=== PATIENT | female | born 1965 | race Hispanic/Latino ===

== ENCOUNTER 2024-04-02 14:52 | Emergency (ER) | payer OTHER ==
[~2024-04-02] VITALS: Ht 165.1 cm; Wt 118.4 kg
[2024-04-02 14:55] VITALS: PULSE 71; RESP 16; TEMP 97; O2SAT 97
[2024-04-02] MEDS ORDERED: NAPROXEN250 MG PO (15:21)
[2024-04-02] MEDS: KETOROLAC TROMETHAMINE 30 MG/ML VIAL IM STA (15:34)
== END 2024-04-02 15:39 | disposition home or self-care (01) ==
LOC: ER 14:55
DX: S86.312A Strain of muscle(s) and tendon(s) of peroneal muscle group at lower leg level, left leg, initial encounter (principal); I10 Essential (primary) hypertension; E11.9 Type 2 diabetes mellitus without complications; E78.5 Hyperlipidemia, unspecified
CPT/HCPCS: 99282; J1885